=== PATIENT | male | born 1975 | race Caucasian/White ===

== ENCOUNTER 2025-07-16 06:29 | Day surgery (SDC) | payer BC ==
[~2025-07-16 06:29] MED LIST: Sodium Chloride 0.9% 10 ML Syringe FLUSH PRN
[2025-07-16] MEDS ORDERED: Ketorolac 30 MG/ML SDV IVPUSH ONE (06:30)
[2025-07-16] MEDS ORDERED: Midazolam 1 MG/ML 2 ML SDV IV ONE (06:30)
[2025-07-16] MEDS ORDERED: Dexamethasone 4 MG/ML 5 ML MDV IVPUSH ONE (06:30)
[2025-07-16] MEDS ORDERED: Ondansetron 4 MG/2 ML SDV IVPUSH ONE (06:30)
[2025-07-16] MEDS ORDERED: fentaNYL 100 MCG/2 ML SDV IV ONE (06:30)
[2025-07-16] MEDS ORDERED: Propofol 200 MG/20 ML SDV IV ONE (06:30)
[2025-07-16] MEDS: Lactated Ringers 1,000 ML IV SCH (07:15)
[2025-07-16] MEDS: Lidocaine 1% with EPINEPHrine 1:100,000 20 ML MDV INJECT ONE (07:16)
== END 2025-07-16 09:20 | disposition home or self-care (01) ==
LOC: FB.SDS 06:29
PROVIDERS: ATTEND Surgery
DX: K42.0 Umbilical hernia with obstruction, without gangrene (principal); E78.2 Mixed hyperlipidemia; F17.210 Nicotine dependence, cigarettes, uncomplicated; Z79.899 Other long term (current) drug therapy
CPT/HCPCS: 00790; J0665; J0690; J1100; J1885; J2004; J2250; J2405; J2704; J3010; J7120